=== PATIENT | male | born 2000 | race Caucasian/White ===

== ENCOUNTER 2024-05-22 16:03 | Outpatient (OUT) | payer OTHER, SELFPAY | END 2024-05-22 16:04 | disposition home or self-care (01) | LOC: WC 16:03 | PROVIDERS: PCP Family Medicine; Visit Provider Physician Assistant | DX: L60.0 Ingrowing nail (principal); S91.001A Unspecified open wound, right ankle, initial encounter | CPT/HCPCS: 10061; G0463 ==